=== PATIENT | female | born 1945 | race Caucasian/White ===

== ENCOUNTER 2018-12-11 05:04 | Inpatient (IN) ==
--- NOTE | 2018-12-05 16:18 | XRay Report ---
HISTORY: Preop for shoulder surgery FINDINGS: The lungs are clear and mildly hyperinflated. Patient may have underlying mild COPD. There is no evidence of pneumonia, mass or congestive heart failure. The heart size is normal. The spine has a moderate levo scoliotic curvature and the bones are osteoporotic. There is a stable old mild wedge compression fracture at T7. A stent is placed in the carotid artery arising from the aortic arch. There has been little change since 07/09/18. IMPRESSION: Possible mild COPD and no acute abnormality Interpreted and Authenticated by: Capo Collier 12/05/18
[2018-12-05 17:47] LABS: Appearance,Urine CLEAR; Bacteria,Urine 0 /hpf (0); Bilirubin,Urine NEG (NEG); Color,Urine YELLOW; Glucose,Urine (UA) NEGATIVE (NEG); Leukocyte Esterase,Urine NEG /uL (NEG); Protein,Urine NEG (NEG); Specific Gravity,Urine 1.009 (1.000-1.035); Urine Blood 0.03 mg/dL (<0.03); Urine RBC < 1 /hpf (0-1); Urine Squamous Epithelial Cell < 1 /hpf (0-4); Urine WBC 0 /hpf (0-4); Urobilinogen,Urine NEG (NEG)
[2018-12-05 19:27] LABS: Blood Urea Nitrogen 18 mg/dl (8-23)
[2018-12-05 19:32] LABS: Basophils # (Auto) 0 K/mcL (0.0-0.3); Basophils % (Auto) 0.3 % (0.0-2.0); Eosinophils # (Auto) 0 K/mcL (0.0-0.7); Eosinophils % (Auto) 0.1 % (0.0-7.0); Granulocytes % (Auto) 80.7 % (38.0-78.0); Lymphocytes # (Auto) 1.9 K/mcL (1.5-4.8); Lymphocytes % (Auto) 15.4 % (15.5-49.0); Mean Cell Volume 93.8 fL (80.0-100.0); Mean Corpuscular HGB Conc 33.3 g/dL (31.0-36.0); Monocytes # (Auto) 0.4 K/mcL (0.1-0.9); Monocytes % (Auto) 3.5 % (1.0-12.0); Platelet Count 388 K/mcL (140-440); RBC 4.32 M/mcL (4.00-5.20); Red Cell Distribution Width 14.2 % (11.5-14.5)
[2018-12-11] MEDS ORDERED: oxyCODONE 10 MG TAB.ER.12H PO SCH (07:00)
[2018-12-11] MEDS ORDERED: ceFAZolin 1 GM VIAL IV SCH (07:00)
[2018-12-11] MEDS ORDERED: CELECOXIB 200 MG CAPSULE PO SCH (07:00)
[2018-12-11] MEDS ORDERED: PREGABALIN 75 MG CAPSULE PO SCH (07:00)
[2018-12-11] MEDS ORDERED: GENTAMICIN SULFATE 800 MG/20 ML VIAL IR ONE (07:07)
[2018-12-11] MEDS ORDERED: SUCCINYLCHOLINE 20 MG/ML ML IV ONE (07:35)
[2018-12-11] MEDS ORDERED: TRANEXAMIC ACID 1,000 MG/10 ML VIAL IV ONE ×2 (07:35→08:53)
[2018-12-11] MEDS ORDERED: PROPOFOL 200 MG/20 ML VIAL IV ONE (07:35)
[2018-12-11] MEDS ORDERED: PHENYLEPHRINE 10 MG/ML VIAL IV ONE (07:35)
[2018-12-11] MEDS ORDERED: LIDOCAINE HCL/PF 100 MG/5 ML SYRINGE IV ONE (07:35)
[2018-12-11] MEDS ORDERED: fentaNYL 100 MCG/2 ML VIAL IV ONE (07:35)
[2018-12-11] MEDS ORDERED: KETAMINE 100 MG/ML ML IV ONE (07:35)
[2018-12-11] MEDS ORDERED: ePHEDrine 50 MG/ML AMPUL IV ONE (07:35)
[2018-12-11] MEDS ORDERED: DEXAMETHASONE 10 MG/ML VIAL IV ONE (07:35)
[2018-12-11] MEDS ORDERED: diphenhydrAMINE 50 MG/ML VIAL IV PRN (08:44)
[2018-12-11] MEDS ORDERED: BENZOCAINE/MENTHOL 1 LOZENGE PO PRN ×2 (08:44→08:53)
[2018-12-11] MEDS ORDERED: ACETAMINOPHEN 1,000 MG/100 ML BOTTLE IV ONE (08:44)
[2018-12-11] MEDS ORDERED: IPRATROPIUM/ALBUTEROL 3 ML AMPUL.NEB NEB PRN (08:44)
[2018-12-11] MEDS ORDERED: PROMETHAZINE 25 MG/ML VIAL IV PRN (08:44)
[2018-12-11] MEDS ORDERED: KETOROLAC 15 MG/ML VIAL IV PRN ×2 (08:44→08:53)
[2018-12-11] MEDS ORDERED: LACTATED RINGERS 250 ML IV PRN (08:44)
[2018-12-11] MEDS ORDERED: MEPERIDINE 25 MG/ML SYRINGE IV PRN (08:44)
[2018-12-11] MEDS ORDERED: FLUMAZENIL 0.1 MG/ML ML IV PRN (08:44)
[2018-12-11] MEDS ORDERED: NALOXONE HCL 0.4 MG/ML VIAL IV PRN (08:44)
[2018-12-11] MEDS ORDERED: ONDANSETRON 4 MG/2 ML VIAL IV PRN ×2 (08:44→08:53)
[2018-12-11] MEDS ORDERED: LACTATED RINGERS 1,000 ML IV SCH (08:45)
--- NOTE | 2018-12-11 08:52 | Brief Operative Note ---
Pre-op diagnosis: right shoulder rtc tear arthroplathy, biceps tendonitis Post-op diagnosis: same Procedure: right reverse total shoulder arthroplasty, soft tissue biceps tenodesis Grafts/Implants: Yes Anesthesia: GETA Complications: none Surgeon: Nahun Brown Sport Intern: Emely Ocasio Estimated blood loss (cc): 100 Specimens Removed/Pathology: none sent Condition: stable Disposition: PACU
[2018-12-11] MEDS ORDERED: POLYETHYLENE GLYCOL 3350 17 GM PACKET PO PRN (08:53)
[2018-12-11] MEDS ORDERED: ONDANSETRON 4 MG ODT TABLET SL PRN (08:53)
[2018-12-11] MEDS ORDERED: BISACODYL 10 MG SUPP.RECT PR PRN (08:53)
[2018-12-11] MEDS ORDERED: FLEETS ADULT ENEMA PR PRN (08:53)
[2018-12-11] MEDS ORDERED: MAGNESIUM HYDROXIDE 30 ML ORAL.SUSP PO PRN (08:53)
--- NOTE | 2018-12-11 08:53 | Discharge Summary ---
Ortho Discharge - TSA - Patient Instructions Diet: Regular Diet Activity: non weight bearing Total Shoulder Protocol: Leave immobilizer in place except for bathing and ROM. Abduction pillow. Continue to wear sling until seen by physician. Codman Pendulum : These exercises use momentum produced by your body to move your shoulder joint. Bend your knees and shift your weight to your front leg, then back, allowing your arm to swing in the same directions. Using the same technique, alternately shift your weight between your right and left legs, allowing your arm to swing from side to side. These exercises are also performed in counterclockwise and clockwise circular motions. Typically these exercises are performed several times per day, for a set number repetitions or minutes, such as 20 times in a row or 5 minutes at a time. Dressing Care: May shower in 2 days, Aquacel Ag - leave on for 5 days - Follow Up Plan Follow Up Appointments: Emely Ocasio PA-C [Physician Museum Curator] - 12/26/18 10:20 am Disposition: Home, Self-Care Prognosis: Good Rehab Potential: Good I certify that the patient requires SNF services: No Overall status at discharge: patient is progressing back to baseline
[2018-12-11] MEDS: ASPIRIN 81 MG TAB.CHEW PO SCH ×2 (09:00→20:26)
[2018-12-11] MEDS: DOCUSATE SODIUM 100 MG CAPSULE PO SCH ×2 (09:00→20:26)
[2018-12-11] MEDS ORDERED: LISINOPRIL/HCTZ 10/12.5MG TABLET PO SCH (09:00)
[2018-12-11] MEDS: fentaNYL 100 MCG/2 ML VIAL IV PRN ×8 (09:12→09:39)
[2018-12-11] MEDS ORDERED: BUPIVACAINE W/EPI 0.5% 50 ML VIAL IJ ONE (09:15)
--- NOTE | 2018-12-11 09:31 | Operative Note ---
DATE OF OPERATION: 12/11/2018 PREOPERATIVE DIAGNOSES: 1. Right shoulder rotator cuff tear arthropathy. 2. Right shoulder proximal biceps tendonitis. POSTOPERATIVE DIAGNOSES: 1. Right shoulder rotator cuff tear arthropathy. 2. Right shoulder proximal biceps tendonitis. PROCEDURES: 1. Right reverse total shoulder arthroplasty. 2. Right shoulder soft tissue proximal biceps tenodesis. SURGEON: Efraín Brown M.D. SUBSURFACE AUGMENT[employer] ELINT OPERATOR SURGEON: Emely Ocasio PA-C ANESTHESIA: General. ESTIMATED BLOOD LOSS: 100 mL COMPLICATIONS: None noted. SPECIMENS REMOVED: None. DRAINS: None. IMPLANTS: DePuy Delta XTEND cementless metaglene TURCIOS coated, DePuy Delta XTENDlocking metaglene screw 4.5 x 30 x2 and non-locking metaglene screw 4.5 x 18 x1, DePuy Delta XTEND glenosphere standard 38 mm, DePuy Delta XTEND modular eccentric epiphysis size 1 right TURCIOS coated cementless, DePuy [employer] Unite Porocoat standard stem size 8, DePuy Delta XTEND humeral polyethylene cup 38 +9 standard. INDICATIONS: The patient has had a longstanding history of worsening pain in the shoulder that has failed conservative treatment. Radiographs have confirmed advanced degenerative joint disease and a failed rotator cuff. After a long discussion about treatment options, the patient elected to proceed with a reverse total shoulder arthroplasty. The risks and benefits were discussed with the patient in detail including, but not limited to, the risks of anesthesia, problems with the heart or lungs related to anesthesia, infection, compromise or injury to the nerves and blood vessels, deep venous thrombosis, pulmonary embolism, pneumonia, continued pain after surgery, worsening pain or symptoms after surgery, swelling, loss of motion, instability, fracture, arm length discrepancy, and need for repeat surgery. DESCRIPTION OF PROCEDURE: The patient was seen in the pre-anesthesia waiting room where all questions were answered and the correct side and site were identified and marked. The patient was transferred to the operating room and administered the anesthetic and given preoperative antibiotics. A time-out was then called. The patient was placed in the modified beach chair position with all prominences well padded. The extremity was prepped and draped from the fingers up to the neck. A standard deltopectoral skin incision was created. Dissection was carried down to the deltopectoral groove and the cephalic vein was isolated medially and retracted laterally with the deltoid. Retractors were placed and the coracobrachialis was split up to the coracoacromial ligament allowing retraction of the conjoined tendon. We split the subscapularis 1 cm medial to the bicipital groove and extended the split into the rotator interval. This was tagged for later repair. The supraspinatus and infraspinatus had been previously torn and retracted. The biceps was cut and a soft tissue tenodesis was performed into the anterior shoulder with #2 FiberWire. A capsular release was performed in a posterior subperiosteal direction along the humerus. The humeral head was then dislocated. We established intramedullary access and hand reamed up to get good cortical chatter with the DonorPro Delta XTEND reverse total shoulder instrumentation. We then used the intramedullary guide and set to about 5 degrees of retroversion. The proximal humerus cut was performed and osteophytes were removed. A metal protector plate was then placed. Attention was then turned to the glenoid. Retractors were placed for optimal visualization and the labrum was excised in its entirety. A centralizing Steinmann pin was placed just into the posterior inferior quadrant in a standard fashion. We reamed over the pin to remove all the cartilage and get to a good base for the prosthesis. The drill was then placed over for the central peg. A cementless Metaglene was then impacted into place. We then drilled, measured, and placed the four screws starting inferior, then superior, then anterior, and finally posterior. The superior locking screw was lined up at the base of the coracoid process. We then impacted the head onto the Metaglene and tightened down in a standard fashion. Attention was then turned back to the humerus. Proximal reaming was performed off the intramedullary guide into the humeral head, using the eccentric guide to allow best coverage. We again set version and broached up to a stable implant. Trials were placed and good tension, motion, and stability were obtained at this point. Trials were removed and the final press fit femoral prosthesis was impacted into place with measured version. The final polyethylene was placed and the shoulder was reduced and again checked for motion, tension, and stability. We irrigated with 3 liters of antibiotic saline and closed the subscapularis with # 2 FiberWire. We irrigated again and closed the deltopectoral interval with several # 0 Vicryl figure of eight sutures. The subcutaneous layer was closed with 2-0 Vicryl and the skin was closed with 4-0 Monocryl in a subcuticular fashion. A sterile pressure dressing was applied and the patient was placed into an abduction sling. All needle and sponge counts were correct. The patient was transferred to the recovery room in stable condition. DAVI:ge Job ID: [id number] Doc ID: [id number] Efraín Brown MD
--- NOTE | 2018-12-11 09:40 | XRay Report ---
HISTORY: Postop right shoulder arthroplasty FINDINGS: There is a well-positioned reverse shoulder prosthesis. There is no fracture or abnormal soft tissue calcification. Minor discoid atelectasis is seen at the right costophrenic sulcus. IMPRESSION: Well-positioned right shoulder prosthesis Interpreted and Authenticated by: Capo Collier 12/11/18
[2018-12-11] MEDS: 0.9 % SODIUM CHLORIDE 1,000 ML IV SCH ×2 (10:11→20:27)
[2018-12-11] MEDS: oxyCODONE/APAP 5/325MG TABLET PO PRN ×5 (10:12→23:42)
[2018-12-11] MEDS: METHOCARBAMOL 750 MG TABLET PO PRN ×2 (12:53→20:26)
[2018-12-11] MEDS: NICOTINE 21 MG PATCH TOPICAL SCH (12:53)
[2018-12-11] MEDS: ceFAZolin 1 GM VIAL IV SCH ×2 (14:58→20:25)
[2018-12-11] MEDS: 0.9 % SODIUM CHLORIDE 10 ML SYRINGE IV SCH ×2 (14:58→21:54)
[2018-12-11] MEDS ORDERED: SENNOSIDES 1 TABLET PO SCH (21:00)
[2018-12-11] MEDS ORDERED: AZITHROMYCIN 250 MG TABLET PO SCH (21:00)
[2018-12-12] MEDS: 0.9 % SODIUM CHLORIDE 1,000 ML IV SCH ×2 (00:30→08:54)
[2018-12-12] MEDS: METHOCARBAMOL 750 MG TABLET PO PRN (04:41)
[2018-12-12] MEDS: oxyCODONE/APAP 5/325MG TABLET PO PRN ×2 (04:41→08:51)
[2018-12-12] MEDS: 0.9 % SODIUM CHLORIDE 10 ML SYRINGE IV SCH (04:42)
[2018-12-12] MEDS ORDERED: PANTOPRAZOLE 40 MG TABLET PO SCH (07:30)
--- NOTE | 2018-12-12 07:51 | Orthopedic Progress Note ---
Subjective Patient information: Note initiated : 12/12/18 at 7:50 am Service Date, if different from initiated Date: [] Patient: Natasha Chavez 73 y/o F admitted on 12/11/18 for Right Reverse Total Shoulder Arthroplasty with. Chief Complaint: [] Interval history: doing well today Objective Vital signs: Vital Signs Temp Pulse Resp BP Pulse Ox 12/12/18 04:42 98.0 F 83 12 145/70 96 12/12/18 01:00 84 12/11/18 23:47 98.3 F 84 12 135/71 92 12/11/18 21:39 14 97 12/11/18 20:09 98.1 F 92 H 12 121/68 98 12/11/18 17:00 84 12/11/18 16:15 97.4 F 80 14 113/85 12/11/18 13:00 78 12/11/18 12:23 87 108/53 97 12/11/18 12:02 83 93/52 99 12/11/18 11:02 76 109/49 100 12/11/18 10:46 80 127/63 98 12/11/18 10:31 74 121/56 98 12/11/18 10:16 76 129/60 98 12/11/18 10:00 84 20 97 12/11/18 09:46 97.9 F 81 20 106/94 100 12/11/18 09:36 97.6 F 78 10 L 104/42 88 L 12/11/18 09:20 98.1 F 85 18 95 12/11/18 09:15 87 20 104/53 100 12/11/18 09:10 88 23 H 112/87 100 12/11/18 09:05 90 17 119/59 100 12/11/18 09:04 97.5 F 90 17 120/58 100 Intake and Output 12/11/18 12/12/18 12/12/18 21:59 05:59 13:59 Intake Total 550 500 Output Total 800 750 400 Balance -250 -250 -400 Intake: Oral 550 500 Output: Void Amount 800 750 400 Other: Urine Appearance Clear Clear Urine Color Bright Yellow Straw Urine Odor Normal Normal # Voids 1 Weight 115 lb 4.8 oz Intake & Output: Intake & Output 12/11/18 12/12/18 12/12/18 21:59 05:59 13:59 Intake Total 550 500 Output Total 800 750 400 Balance -250 -250 -400 Weight 115 lb 4.8 oz Intake: Oral 550 500 Output: Void Amount 800 750 400 Other: Urine Appearance Clear Clear Urine Color Bright Yellow Straw Urine Odor Normal Normal # Voids 1 Incision: Yes healing Incision clean and dry: Yes Dressing: Yes clean, Yes dry, Yes intact Weight bearing status: non Neurological exam IM: Yes alert, Yes normal gait, Yes oriented X3, Yes motor sensory intact, Yes neurovascular intact Extremities exam IM: No calf tenderness - Labs CBC & BMP: 12/12/18 04:46 12/05/18 16:17 Labs: 12/12/18 12/05/18 04:46 16:17 Hgb 11.7 L 13.5 Hct 35.5 L 40.5 Assessment and Plan (1) Osteoarthritis, shoulder pod 1 s/p reverse tsa nwb sling pain control home today Status: Acute
[2018-12-12] MEDS: DOCUSATE SODIUM 100 MG CAPSULE PO SCH (08:50)
[2018-12-12] MEDS: ASPIRIN 81 MG TAB.CHEW PO SCH (08:51)
[2018-12-12] MEDS ORDERED: HYDROCHLOROTHIAZIDE 12.5 MG CAPSULE PO SCH (09:00)
[2018-12-12] MEDS ORDERED: LISINOPRIL 10 MG TABLET PO SCH (09:00)
[2018-12-12] MEDS: NICOTINE 21 MG PATCH TOPICAL SCH (09:47)
[2018-12-12] MEDS ORDERED: ATORVASTATIN 20 MG TABLET PO SCH (21:00)
== END 2018-12-12 11:25 | disposition home or self-care (01) | DRG 483 ==
LOC: MEDSUR 05:04
PROVIDERS: ADMIT Orthopaedic Surgery Sports Medicine; ATTEND Orthopaedic Surgery Sports Medicine